=== PATIENT | male | born 1940 | race Caucasian/White ===

== ENCOUNTER 2019-09-04 23:06 | Inpatient (IN) | payer OTHER ==
[~2019-09-04] VITALS: Ht 180.3 cm; Wt 67.9 kg
--- NOTE | ~2019-09-04 | D ---
[facility] [place] [address] DISCHARGE SUMMARY Name: BANDAR HUITRON Room #: 518B-B [facility] IN M.R.#: [id number] Admission: 09/04/19 Attend Phys: Campbell Wallis DO Discharge: 09/12/19 Date of : 36 Report #: [id number] THIS REPORT FOR: //name// CC: Campbell Wallis DAVID CASTELLANOSZANDU DATE OF SERVICE: 09/12/2019 INPATIENT PSYCHIATRIC DISCHARGE SUMMARY ATTENDING PHYSICIAN: Campbell Wallis DO RN HOSPITAL AT THE TIME OF DISCHARGE: Gigi Jacobo MD DISCHARGE DIAGNOSES: Major neurocognitive disorder, likely Alzheimer's disease with behavioral disturbance, improved. MEDICAL COMORBIDITIES: Hypertension, diabetes mellitus, coronary artery disease. DISCHARGE PLAN: Discharging to [facility] Psychiatric medical care to be provided by receiving facility. DISCHARGE MEDICATIONS: Metoprolol succinate XL 25 mg p.o. daily; Seroquel 25 mg p.o. q. 4 hours p.r.n. agitation; Seroquel fumarate 62.5 mg p.o. at 0900, 1500, 1700; carbidopa/levodopa 1 tab p.o. at 0600, 1400, 2200 for Parkinson disease; fludrocortisone 0.1 mg p.o. daily for hypotension, cyanocobalamin 1000 mcg p.o. daily for supplementation. LABORATORY DATA: This admission, CBC grossly normal, done on 09/06/2019. Chemistries, most recent one on 09/10/2019 shows sodium 143, potassium 4.1, chloride 106, bicarbonate 22, BUN 34, creatinine 1.2, estimated GFR 58, calcium 8.8, magnesium 3.0 on 09/06/2019, triglycerides 115, cholesterol 157, LDL 94, HDL 40. B12 of 829, TSH 1.251. REASON FOR ADMISSION: Back on 09/04/2019, the patient sent from senior living to the [facility], had aggressive behavior at senior living, physically aggressive with staff, verbally aggressive with daughter as well as ____ relatively new behavior. HOSPITAL COURSE: The patient was admitted to Geriatric Psychiatry Unit. The patient had a pretty clear since day. No ____ physical or chemical restraints required. I had started him on Seroquel regimen. We increased that ____ mg t.i.d. This seems to have done to check for his impulse control. Gait was variable during admission from using a walker ____. At the time of discharge, the patient was not suicidal or homicidal, but pleasantly confused. [facility] [address] [place] [address] DISCHARGE SUMMARY Name: ELANABANDAR Amilcar Room #: 518B-B [facility].#: [id number] Admission: 09/04/19 Attend Phys: Campbell Wallis, Discharge: 09/12/19 Date of : 36 Report #: [id number] PHYSICAL EXAMINATION: VITAL SIGNS: On the day of discharge, temperature 36.5, pulse 69, respirations 20, BP 169/85, O2 sat 97%. MUSCULOSKELETAL: Assisted gait, normal station. MENTAL STATUS EXAMINATION: This is a well-developed, ill-appearing ____ male, appearing older than stated age. Attention limited. Concentration limited. Speech is normal rate. Thought process is linear and limited. Thought content, poverty of thought and at times, nonsensical. No psychomotor agitation, no psychomotor retardation. Denied SI or HI. ____ overt hallucinations. Memory impaired. Insight limited. Judgment impaired. Fund of knowledge well below average. PROGNOSIS: For this patient is guarded to poor given his age of 79, fairly progressive neurodegenerative disorder. By: [id number] Campbell Wallis, DO /nt
--- NOTE | 2019-09-05 00:43 | NUR ---
PT ARRIVED ON UNIT AT 2240. PT TRANSFERRED FROM [facility]. PRESENTED IN THAT ED FROM [facility]. PT HAS DEMENTIA, PARKINSONS, CAD, HTN, AND DM TYPE II. BROUGHT TO ED DUE TO INCREASED AGITATION AND COMBATIVENESS AT [facility]. PATIENT COOPERATIVE WITH INTERVIEW,AND ASSESSMENT. PLEASANT, BUT A LITTLE COMNFUSED. NO EVIDENCE OF ANY NEGATIVE BEHAVIOR. PT DENIES HI/SI. CONTACTED SON, AND LEFT MESSAGE ON HIS VOICE MAIL TO HIS CURRENT LOCATION. CONSENTS SIGNED, AND PT IS RESTING QUIETLY IN BED.
[2019-09-05 01:34] VITALS: BP 190/80
--- NOTE | 2019-09-05 03:07 | NUR ---
PT HAS SLEPT WELL THROUGH THE NIGHT.
[2019-09-05 08:31] VITALS: BP 212/112
[2019-09-05 11:51] VITALS: BP 212/112
--- NOTE | 2019-09-05 12:04 | NUR ---
ASSUMED CARE AT 0700 THIS MORNING. PT. AWAKE, ALERT. HE IS SITTING IN A W/C AT THE DINING ROOM TABLE. HE IS EATING NOT WELL HE COULD. HE KEEPS ATTEMPTING TO GET UP OUT OF THE W/C. ORDER FOR DENVER HO OBTAINED FROM DR. HUGHES. PT. IS UNSTEADY ON HIS FEET. HE IS VERY CONFUSED AND IS ORIENTED TIMES ONE ONLY. HE TOOK HIS MEDICATIONS WITHOUT PROBLEMS NOTED. AT ABOUT 1200 SHE STARTED GETTING AGITATED STATING HE WANTS TO LAY DOWN IN HIS BED, BUT THE "BITCH WON'T LET ME". IT WAS EXPLAINED TO HIM THAT IT IS LUNCH TIME AND HE CAN LAY DOWN AFTER EATING.
--- NOTE | 2019-09-05 13:14 | NUR ---
Nutrition: Pt seen due to consult received for possible supplement need/poor intake. Pt admit to [facility] with dementia. Hx parkinsons, CAD, HTN, DM. Attempted to interview pt however very confused and agitated. Stated "How would you like a fat lip?". ST evaled this am and placed pt on mechanically altered ground diet due to poor dentition and difficulty masticating. 100% of breakfast and am snack documented but refused lunch. Ensure is already ordered on trays. RD encouraged intake of supplements with pt however not sure he understands. No wt hx to assess although pt does appear thin. With nutrition interventions in place, will consider low risk, but follow intake/wt trends.
[2019-09-05 15:36] VITALS: BP 131/75
[2019-09-05 19:43] VITALS: BP 123/73
--- NOTE | 2019-09-06 03:58 | NUR ---
ASSUMED CARE AT START OF SHIFT PT RESTING IN BED , ALARM SET FOR SAFETY, PT TO TAKE PO MEDICATION BUT WHEN HALDOL WAS ORDER PT REFUSE TO TAKE MEDICATION AND SPIT IT OUT. PT THEN CALDERON TO SLEPT TO AWAKEN AT 0300 AGITATED AND APPEARED TO ATTEMT TO HIT AT STAFF WHEN ASK PT TO RETURN TO BED. AFTER MEÑO COASTING PT RETURNED TO BED AND FELL BACK TO SLEEP. FREQ ROUNDING NOTED FOR SAFETY. WILL CONTIUE WITH CURRENTPLAN OF CARE AND WILL REPORT CHANGES.
--- NOTE | 2019-09-06 08:29 | NUR ---
SW called dght and son for intake assessment information but left a VM.
--- NOTE | 2019-09-06 09:22 | NUR ---
Sw spoke with son and completed the intake assessment and TP. Pt has lived at [facility] for 3 months. Prior to that he was at home witha nephew and his gf. Son reports that pt does not have a DPOA. ROLANDO has permisision to contact [facility] and send updates
[2019-09-06 10:12] VITALS: BP 127/72
[2019-09-06 11:11] VITALS: BP 127/72
[2019-09-06 11:47] LABS: ABSOLUTE NEUTROPHILS 5.5 thou/uL (1.4-8.2); BASOPHILS 0.7 % (0.0-2.0); EOSINOPHILS 1.2 % (0.0-3.0); HEMATOCRIT 46.2 % (42.0-52.0); HEMOGLOBIN 15.2 gm/dL (14.0-18.0); LYMPHOCYTES 15.4 % (24.0-44.0); MCH 30.3 pg (26.0-34.0); MCHC 32.9 g/dL (28.0-37.0); MCV 92.2 fL (80.0-100.0); MONOCYTES 6.3 % (1.0-8.0); PLATELET COUNT 234 thou/uL (150-400); POLYS 76.4 % (36.0-66.0); RBC 5.01 mil/uL (4.50-6.00); RDW 14.2 % (10.5-14.5); WBC 7.2 thou/uL (4.0-11.0)
[2019-09-06 11:59] LABS: CALCIUM 9.9 mg/dL (8.5-10.1); CREATININE 1.4 mg/dL (0.7-1.3); POTASSIUM 4.2 mmol/L (3.5-5.1)
[2019-09-06 12:24] LABS: TSH 1.251 uIU/mL (0.358-3.740)
--- NOTE | 2019-09-06 13:02 | NUR ---
ASSUMED CARE AT 0700 THIS MORNING. HE GOT UP FOR BREAKFAST AND ATE IT ALL. WHILE HE WAS EATING HIS LUNCH, HE KEPT STATING, "I'M EATING THIS UNDER DURESS". HE HAS HAD A BOWEL MOVEMENT TODAY AND BEEN CHANGED TWO TIMES. HE WAS ASLEEP DURING LUNCH. HE WAS INITIALLY HARD TO WAKE UP BUT WHEN HE DID, HE WAS NOT EATING BUT DID DRINK HIS SUPPLEMENT.
[2019-09-06 19:40] VITALS: BP 103/53
--- NOTE | 2019-09-06 20:14 | NUR ---
ASSUMED CARE ON 09/06/19 @ 19:15, IN W/C PROPELLING SELF IN THE HALLWAYS AND DAY ROOM. ABLE TO GIVE NAME A&O X 1. CALM, SPEAKS SOFTLY. WILL CONTINUE TO MONITOR Q 12 MINTUES FOR PATIENT SAFETY.
--- NOTE | 2019-09-07 00:17 | NUR ---
TOOK MEDS CRUSHED IN ICE CREAM. TRANSFERRED TO TOILET AND THEN TO BED X 2 ASSIST. BRIEF WAS DRY AND DID NOT VOID OR HAVE A BM ON TOILETING. BED ALARM IS SET AND BED IN LOW POSITION, WILL CONTINUE TO MONITOR Q 12 MINUTES FOR PATIENT SAFETY.
--- NOTE | 2019-09-07 00:19 | NUR ---
PRN TYLENOL 650 GIVEN @ 21:35 FOR 5/10 GENERAL PAIN. UPON FOLLOW UP NOTED TO BE SLEEPING.
[2019-09-07 00:20] VITALS: BP 103/53
[2019-09-07 04:25] LABS: CALCIUM 9.7 mg/dL (8.5-10.1); CREATININE 1.6 mg/dL (0.7-1.3); POTASSIUM 3.4 mmol/L (3.5-5.1)
--- NOTE | 2019-09-07 05:49 | NUR ---
SLEPT 7.4 HOURS
[2019-09-07 07:05] VITALS: BP 145/68
[2019-09-07 14:48] LABS: CHOLESTEROL 157 mg/dL (<200); HDL CHOLESTEROL 40 mg/dL (>40); LDL CHOLESTEROL 94 mg/dL (<100); TRIGLYCERIDE 115 mg/dL (<150); VLDL 23 mg/dL (<40)
[2019-09-07 14:49] LABS: TC:HDL 3.9 Ratio (Not establshd)
--- NOTE | 2019-09-07 14:53 | H ---
[facility] [place] [address] HISTORY AND PHYSICAL Name: BANDAR HUITRON Room #: 518A-A ADM IN M.R.#: [id number] Admission: 09/04/19 Attend Phys: Campbell Wallis DO Discharge: Date of : 38 Report #: [id number] THIS REPORT FOR: //name// CC: Campbell Wallis DAVID HAGENVELU DATE OF SERVICE: 09/05/2019 INPATIENT PSYCHIATRIC EVALUATION ATTENDING PHYSICIAN: Campbell Wallis DO. EXECUTIVE ADMINISTRATIVE ASST: Stephenie Webb APRN and Campbell Monreal M.D. SOURCES OF INFORMATION: Records from [facility] Nursing notes. HISTORY OF PRESENT ILLNESS: This is an 79-year-old male who is a very poor historian known to be demented, resides at [facility]. The patient has had a difficult time of late and he had had aggressive behavior the day at the care home, reported physically aggressive with staff and verbally aggressive with the daughter as well, which he is reportedly unlike him and early, he fell today where a staff member and the daughter were able to catch him. No loss of consciousness. He is known to have dementia. ALLERGIES: No known allergies. PAST MEDICAL HISTORY: Arthritis, coronary artery disease, status post CABG, dementia, diabetes mellitus and hypertension. Additional medical history, tremors. PAST SURGICAL HISTORY: Coronary artery bypass graft surgery. 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 Chest x-ray showed no active cardiopulmonary disease. He was on 25 mg twice daily for aggression. Mind care consult recommended increasing Seroquel 25 to 25 mg 3 times a day as well as inpatient placement. LABORATORY DATA: Laboratories from [facility], hemoglobin 15.2, hematocrit 45.4, white count 6.8, platelets 217. Sodium 142, potassium 3.9, chloride 103, bicarbonate 29, BUN 18, creatinine 1.3, glucose 163, magnesium 1.7, total bilirubin 0.8, ALT 33, alkaline phosphatase 92, albumin 3.8. White count 6.8, H and H 15.2 and 45.4, platelet count 217. Urinalysis is negative thus show moderate hyaline casts. [address] [address] HISTORY AND PHYSICAL Name: BANDAR HUITRON Room #: 518A-A ADM IN .R.#: [id number] Admission: 09/04/19 Attend Phys: Campbell Wallis, Discharge: Date of : 38 Report #: [id number] VITAL SIGNS: On 09/03/2019 initially showed BP 192/93 at 1343 and 1757 and came down to 139/88. There is a history of Parkinson disease with this patient as stated in past medical history. Parkinson related dementia. On interview today with the patient, he was not oriented to person and place, was pleasantly confused and a kind of detailed interview with him was not able to be achieved due to his advanced dementia. VITAL SIGNS: Today, pulse 67, respirations 17, BP 123/73, O2 sat 98%. MUSCULOSKELETAL: In wheelchair, nonambulatory as far as I could tell. MENTAL STATUS EXAMINATION: This is a well-developed, ill-appearing male. Height 5 feet 11 inches, BMI is 20.5. Looking undernourished. Attention limited. Concentration limited. Speech soft, normal rate. Thought process linear and limited. Thought content, relative poverty of thought. No psychomotor agitation, no psychomotor retardation. Denied SI or HI. Denied hopelessness, helplessness. Memory known to be impaired. Insight limited. Judgment limited. Fund of knowledge well below average. An 79-year-old male, was sent from [facility] to [facility] for dementia with behavioral situation. DIAGNOSES: Major neurocognitive disorder, possibly due to Parkinson disease with behavioral disturbance. Other comorbidities include diabetes mellitus, coronary artery disease. PLAN: Evaluate, stabilize, obtain collateral. CURRENT MEDICATIONS IN THE HOSPITAL: Metoprolol succinate 25 mg p.o. daily, hydralazine 10 mg p.o. q. 6 p.r.n., memantine 5 mg p.o. daily, fludrocortisone 0.1 mg p.o. daily, cyanocobalamin 1000 mcg p.o. daily, glipizide 5 mg p.o. daily with breakfast, carbidopa/levodopa 1 tab p.o. t.i.d. He did take his medicationlast night I believe he had refused it this morning. Routine PRNs. PLAN: Evaluate, stabilize, obtain collateral. Given patient's recent behavioral problems, I think we will increase his Seroquel upwards to 37.5 mg dose and see how he does in the next few days, attempt to obtain further collateral from his family. I believe he is voluntary by DPOA. Time spent on review of records, coordination of care is at least 45 minutes. STRENGTHS: He is insured, supportive family. [facility] [address] [place] [address] HISTORY AND PHYSICAL Name: BANDAR HUITRON Room #: 518A-A ADM IN .R.#: [id number] Admission: 09/04/19 Attend Phys: Campbell Wallis DO Discharge: Date of : 38 Report #: [id number] WEAKNESSES: Advanced age, already having major neurocognitive disorder. The patient will be a full code at this time. <ELECTRONICALLY SIGNED> By: Campbell Wallis DO 09/07/19 1453 2027 [id number] Campbell Wallis DO /nt
--- NOTE | 2019-09-07 15:59 | NUR ---
Lying supine in bed without s/o distress. States he is "pissed". Orientated to person and place. Alert and follows some commands. Breath sounds clear t/o, bilaterally equal. Reg HR auscultated. Color pale pink with brisk capillary refill and palpable peripheral pulses. Needs assistance with voiding--yellow urine per toilet. Active bowel sounds over soft, rounded abdomen. Able to stand with assistance. Initially very resistant to taking meds but on 3rd approach took am meds. 1500 Despite multiple attempts refused afternoon meds. Grabbed staff members wrist and pushed it away. Repeatedly stated I don't want to take meds. 1610 Up in dining room watching TV. No s/o distress.
[2019-09-07 20:57] VITALS: BP 122/63
--- NOTE | 2019-09-08 04:48 | NUR ---
ASSUMED CARE OF THIS PATIENT AT 1900 FOR TRADING MANAGER. SPENT EVENING LYING IN BED OTHER THAN TOILETING. VERY LITTLE ASSISTANCE WITH ASSESSMENT PROCESS. TOOK MEDS AFTER MUCH ENCOURAGEMENT. NO PHYSICAL C/O THIS SHIFT. NO APPARENT DISTRESS. WILL CONTINUE TO MONITOR.
[2019-09-08 09:02] VITALS: BP 168/86
[2019-09-08 09:41] VITALS: BP 168/86
--- NOTE | 2019-09-08 10:00 | NUR ---
ASSUMED CARE AT 0700 THIS MORNING. HE WAS GOTTEN OUT OF BED FOR BREAKFAST BY PCT'S. HE WAS CHANGED AND GOTTEN INTO CLEAN CLOTHING. INITIALLY WHILE EATING BREAKFAST, HE WAS APPROACHED BY THIS RN TO TAKE HIS MEDICATIONS. HE INITIALLY REFUSED STATING HE NEEDS TO EAT FIRST. HE WAS ANGRY. AFTER BREAKFAST HE AGAIN WAS APPROACHED. HE TOOK THE FIRST SPOONFUL OUT OF THIS WRITERS HANDS AND TOOK IT. HE STATED HE DID NOT LIKE THE TASTE BUT CONTINUED TO TAKE ALL THE MEDICATIONS WHICH WAS CRUSHED AND PUT IN PUDDING. HE TOLD THE STAFF PCT'S WHEN HE NEEDED TO UTILIZE THE RESTROOM. HE
[2019-09-08 19:42] VITALS: BP 140/71
[2019-09-08 19:43] VITALS: BP 119/28
--- NOTE | 2019-09-09 00:44 | NUR ---
ASSUMED CARE OF THIS PATIENT AT 1900 FOR FX ARTIST. SPENT THE EVENING IN DAYROOM WITH PEERS. MINIMAL INTERACTION WITH PEERS. ASKED THIS STAFF IF HE WAS WELL ENOUGH TO BE DISCHARGED YET. TOOK HS MEDS WHOLE WITHOUT DIFFICULTY AFTER ASKING WHAT HE WAS TAKING. NO C/O. NO APPARENT DISTRESS. WILL CONTINUE TO MONITOR.
--- NOTE | 2019-09-09 07:30 | NUR ---
Assumed care of patient this am. Patient sitting in chair in [facility]. Patient denies pain. Patient states that he wants to go back home. Patients affect suspicious. Patient takes medications whole with fluids. Patients assessment shows clear breath sounds, active bowel sounds, and s1 s2 heard with auscultation.
[2019-09-09 08:00] VITALS: BP 133/68
[2019-09-09 08:50] VITALS: BP 133/68
[2019-09-09 19:20] VITALS: BP 126/60
--- NOTE | 2019-09-10 02:33 | NUR ---
Assessments completed. pt laying in bed with little to no interaction. pt got up to bathroom and has been incont x2 tonight. 2200 med given to pt and pt pretended to swallow pill. nurse had pt opened his mouth and there was no sign of the med still being in his mouth. pt drank a few sips of water. later when pt got up to the bathroom, nurse found part of the medication stuck on pt's shirt. pt has been sleepy overnight and does't want to be disturbed. no s/s of distress. will cont to monitor
[2019-09-10 06:55] LABS: CALCIUM 8.8 mg/dL (8.5-10.1); CREATININE 1.2 mg/dL (0.7-1.3); POTASSIUM 4.1 mmol/L (3.5-5.1)
[2019-09-10 09:46] VITALS: BP 153/77
--- NOTE | 2019-09-10 11:21 | NUR ---
DID TAKE AM MEDICATIONS AND ALLOW AM ASSESSMENTS-SITTING IN DAYROOM IN WHEELCHAIR MOST OF AM-IS NOTED TO HAVE URINARY FREQUENCY ASKS Q 1-2 HOURS TO USE BATHROOM AND URINATES SMALL AMOUNTS-AT TIMES WILL SAY "CAN'T GO" APPETITE GOOD. DENIES SI/SH/HI. DENIES C/O PAIN. REPORTS MOOD "BAD" BUT IS UNABLE/UNWILLING TO STATE WHY. DYSPHORIC MOOD-EASILY FRUSTRATED AND BECOMES DEMANDING ABRUPT AT TIMES WHEN ASSISTED WITH CARES. DOES REQUIRE SBA X 1-2 TO TRANSFER. ORIENTED TO PERSON ONLY.
--- NOTE | 2019-09-10 17:10 | NUR ---
ROLANDO contacted Redd Beltran and spoke with him. He said he did not receive a fax from ROLANDO; he explained it goes to admissions first. He gave another fax number of [phone]. He also said that he does not screen pts for returning; instead a liason does. He said he will email the liason that a visit needs to occur. He also gave ROLANDO the phone number to Shayy who does facilitate admissions and return of [phone]. ROLANDO contacted Shayy who said she will dispatch a liason to come to the hospital tomorrow. She confirmed the fax number given by Redd. ROLANDO faxed updates to admissions to the number given. ROLANDO team will continue to follow pt during his stay on this unit.
[2019-09-10 20:11] VITALS: BP 146/52
--- NOTE | 2019-09-11 02:20 | NUR ---
Care assumed of patient at 1915: Patient resting in bed at start of shift. Easily arousable. Woken for nursing assessment. Patient alert and oriented to name. Patient denied pain or discomfort. Denies SI/HI/AH/VH. Pleasantly confused. No s/s of delusional or paranoia behaviors. No aggression shown. Patient resistive to cares for toileting. Patient having nonsensical speech at times. When asked current date, location and situation, patient started to talk about rocks and other mumbled words not understood. Patient up to use the bathroom several times this shift. Has been continent and incontinent of bladder. Patient unsteady on feet with poor balance at times. Patient stating "just leave me alone". When educated on importance of staff staying with him so he doesn't fall, he is more accepting of assistance. Patient declined HS snack. Took HS medication whole without difficulty or s/s of cheeking.
--- NOTE | 2019-09-11 07:30 | NUR ---
Assumed care of patient this am. Patient in mileu sitting at a table waiting for breakfast. Patient takes medications whole with thin fluids. Patient ambulates with walker. Patient denies pain. Patients affect perplexed. Patients assessment shows clear breath sounds, active bowel sounds, and s1 s2 heard with auscultation.
[2019-09-11 08:00] VITALS: BP 140/66
[2019-09-11 09:22] VITALS: BP 140/66
[2019-09-11 20:23] VITALS: BP 129/68
--- NOTE | 2019-09-12 02:19 | NUR ---
ASSUMED CARE @ 19:15 ON 09/11/19, IN DAYROOM SITTING BY SELF AT A TABLE. COOPERATED WITH ASSESSMENT. TAKEN TO BED BY X2 STAFF. KICKING AND RESISTING CARE DURING TRANSFER TO BED. TOOK MEDS WITHOUT CHEEKING, BOTH CONTINENT AND INCONTINENT OF BLADDER. NO BM NOTED THIS SHIFT. IN BED WITH BED IN LOW POSITION, BED ALARM SET. WILL CONTINUE TO ROUND Q 12 MINUTES FOR PATIENT SAFETY.
[2019-09-12 02:24] VITALS: BP 129/68
[2019-09-12 09:18] VITALS: BP 169/85
[2019-09-12 09:22] VITALS: BP 169/85
--- NOTE | 2019-09-12 09:31 | NUR ---
Assumed care this morning after bedside report. Patient alert and oriented. Calm and at the activity room. Patient took breakfast and medication wiuthuot any issue. Redfused to participate in the group session, prefered to stay in the room, however, he walked around the unit instead. Will continue to monitor.
--- NOTE | 2019-09-12 11:15 | NUR ---
HELGA Discharge note Helga received a call from Lu with [facility]; she set up transportation to discharge pt at 1400. She asked SW to fax med list to [phone]. HELGA faxed med list and updated the psych doctor and nursing team of pt's discharge. HELGA gave the community cultural development officer the discharge fax sheet to be faxed to facility with his discharge docs. No other needs for HELGA team to address at this time. [facility] [address] [place] [address] fax [phone]
--- NOTE | 2019-09-12 11:31 | NUR ---
Nutrition: Seen for follow up. Visited w/ pt in room. He continues on a mechanically altered, ground diet w/ no straws or mixed consistencies per PAPER STRIPPER. Is eating incredibly well. Consistently high meal intakes; meal average of 99% per the last 13 recorded meals 09/08 - 09/12. He has been receiving Ensure Enlive all meals. Pt states "nasty stuff" but has been consuming near 100% of it. Note hx dementia. Pt confused in some answers. Believes he was told he needs to lose weight? RD helped clarify he is at a very healthy weight and given his taller stature, weight loss would not be indicated. Helped modify lunch choices to improve PO success. Plan to decrease Ensure frequency to 1x/day at lunch. Keep as low nutrition risk.
[2019-09-12] MEDS ORDERED: SEROQUEL 25 MG25 M1 PO ×2 (13:09→13:11)
[2019-09-12] MEDS ORDERED: METOPROLOL SUCC25 M1 PO (13:09)
[2019-09-12] MEDS ORDERED: CARBIDOPA-LEVO1 EAC9 PO (13:11)
[2019-09-12] MEDS ORDERED: FLORINEF ACETA0.1 MG PO (13:12)
[2019-09-12] MEDS ORDERED: B-12500 MCG PO (13:13)
--- NOTE | 2019-09-13 12:19 | NUR ---
ROLANDO received a call from pt's admissions team requesting a Level I DA-124C. SW completed the form and faxed it to [phone]. SW will file in pt's record. SW team will continue to follow pt during his stay on this unit.
== END 2019-09-12 14:20 | DRG 57 ==
LOC: SBH 23:06
PROVIDERS: Nurse Practitioner; ADMIT Psychiatry & Neurology Psychiatry
DX: G20 Parkinson's disease (principal); F01.51 Vascular dementia, unspecified severity, with behavioral disturbance; F02.81 Dementia in other diseases classified elsewhere, unspecified severity, with behavioral disturbance; G30.9 Alzheimer's disease, unspecified; I25.10 Atherosclerotic heart disease of native coronary artery without angina pectoris; E11.9 Type 2 diabetes mellitus without complications; Z95.1 Presence of aortocoronary bypass graft; Z90.49 Acquired absence of other specified parts of digestive tract; F02.80 Dementia in other diseases classified elsewhere, unspecified severity, without behavioral disturbance, psychotic disturbance, mood disturbance, and anxiety
CPT/HCPCS: 10880